=== PATIENT | female | born 1935 | race Caucasian/White ===

== ENCOUNTER 2020-08-05 11:22 | Emergency (ER) | payer MEDICARE ==
--- NOTE | 2020-08-05 13:19 | Event Note ---
ED Screening Note Date of service: 08/05/20 Time: 13:17 ED Screening Note: 85-year-old female patient presents to emergency department with reported complaints of right facial pain/swelling and right-sided chest pain status post mechanical fall 4 days ago. Patient was ambulating outside when she tripped and fell forward onto the concrete. Fall was witnessed by the patient's son. There was no loss of consciousness. Patient has developed bruising and swelling to the right side of her face since the fall. Patient is not anticoagulated. General: Awake, appropriately interactive, no acute distress. Neck: Supple. Full range of motion intact. Cardiovascular: Normal peripheral perfusion. Pulmonary: No respiratory distress. Right anterior chest wall tenderness. Skin: Right facial ecchymosis Neurological: No facial asymmetry. Speech is clear. Follows commands. Patient is alert and oriented. Musculoskeletal: Moves all four extremities spontaneously with normal range of motion. Psych: Cooperative. Appropriate mood and affect. Imaging studies ordered; case discussed with Dr. Escudero, attending emergency physician, who agrees with initial diagnostic work-up. I have greeted and performed a focused rapid initial assessment of this patient. A comprehensive ED assessment and evaluation of the patient, analysis of all test results, and completion of the medical decision-making process will be conducted by additional ED providers. This initial assessment/diagnostic orders/clinical plan/treatment(s) is/are subject to change based on patients health status, clinical progression and re-assessment. Further treatment and workup at subsequent clinical provider's discretion. Patient/guardian urged not to elope from the ED as their condition may be serious if not clinically assessed and managed.
[2020-08-05 14:39] LABS: Hematocrit 35.1 % (30.3-42.9); Hemoglobin 11.5 gm/dl (10.1-14.3); Mean Corpuscular HGB Conc 33 % (30-34); Mean Corpuscular Volume 88 fl (79-97); Platelet Count 311 K/mm3 (140-440); Red Cell Distribution Width 14.7 % (13.2-15.2)
[2020-08-05 14:52] LABS: Blood Urea Nitrogen 12 mg/dL (7-17); Calcium 9.3 mg/dL (8.4-10.2); Hemolysis Index 4
[2020-08-05 15:05] LABS: BUN/Creatinine Ratio 24
--- NOTE | 2020-08-05 17:28 | Cat Scan Report ---
CT head/brain wo con INDICATION: trauma. TECHNIQUE: All CT scans at this location are performed using CT dose reduction for ALARA by means of automated e xposure control. COMPARISON: None available. FINDINGS: There is no evidence of hemorrhage, hydrocephalus, brain edema, or mass effect/mass lesion. There is overall normal brain formation and brain volume for the patient's age. Ventricular and cisternal/sulc al size is normal for age. The included paranasal sinuses and mastoid air cells are clear. The orbits appear unremarkable. IMPRESSION: 1. No acute intracranial abnormality. Signer Name: Alfred Hackett MD Signed: 08/05/2020 5:23 PM Workstation Name: [id number]
--- NOTE | 2020-08-05 17:29 | Cat Scan Report ---
CT CERVICAL SPINE WITHOUT CONTRAST INDICATION: trauma. TECHNIQUE: Axial CT images of the spine were obtained. Sagittal and coronal reformatted images were produced. Al l CT scans at this location are performed using CT dose reduction for ALARA by means of automated exp osure control. COMPARISON: None available. FINDINGS: ACUTE FRACTURE(S) OR SUBLUXATION: None. SPINAL DEGENERATIVE CHANGES: There is mild generalized spondylosis and facet DJD without significant spinal canal or neural foraminal narrowing. PARASPINAL SOFT TISSUES: No soft tissue swelling or other acute abnormalities. ADDITIONAL FINDINGS: No significant additional findings. IMPRESSION: 1. No acute fracture or subluxation in the spine in neutral position. Signer Name: Alfred Hackett MD Signed: 08/05/2020 5:25 PM Workstation Name: [id number]
--- NOTE | 2020-08-05 17:32 | Cat Scan Report ---
CT CHEST WITH CONTRAST INDICATION / CLINICAL INFORMATION: Trauma. Chest pain after trauma. TECHNIQUE: Axial CT images were obtained through the chest after 100 mL Omnipaque [address] IV contrast. Al l CT scans at this location are performed using CT dose reduction for ALARA by means of automated exp osure control. COMPARISON: None available. FINDINGS: HEART: No significant abnormality. CORONARY ARTERY CALCIFICATION: Mild. THORACIC AORTA: No significant abnormality. MEDIASTINUM / TATI: No significant abnormality. PLEURA: No pleural effusion. No pneumothorax. LUNGS: Minimal bibasilar atelectasis. No acute airspace disease. ADDITIONAL FINDINGS: Mild diffuse thyroid enlargement with small subcentimeter nodule in the right lo be. UPPER ABDOMEN: No acute abnormality. Liver is enlarged and hypodense characteristic of fatty infiltra tion. SKELETAL SYSTEM: Possible nondisplaced fractures of the right lateral 3rd through 7th ribs. Otherwise , no acute skeletal abnormality. IMPRESSION: 1. Possible nondisplaced fractures of the right lateral 3rd through 7th ribs. 2. No soft tissue injury of the chest. 3. Hepatomegaly with hepatic steatosis. 4. Incidental thyroid nodule in the right lobe measuring less than 1 cm in a patient equal to or over age 35. Recommendation based on ACR guidelines: Unless patient has risk factors for thyroid cancer, no additional imaging is recommended Signer Name: Alex Galindo MD Signed: 08/05/2020 5:28 PM Workstation Name: [id number]
--- NOTE | 2020-08-05 17:32 | Cat Scan Report ---
CT MAXILLOFACIAL WITHOUT CONTRAST INDICATION: Facial pain after trauma. TECHNIQUE: All CT scans at this location are performed using CT dose reduction for ALARA by means of automated e xposure control. COMPARISON: None available. FINDINGS: FACIAL BONES: No fracture or other significant abnormality. PARANASAL SINUSES: No significant abnormality. ORBITS: No acute findings. Previous bilateral cataract surgery. VISUALIZED INTRACRANIAL STRUCTURES: No significant abnormality. ADDITIONAL FINDINGS: None. IMPRESSION: 1. No acute maxillofacial fracture or subluxation. Signer Name: Alfred Hackett MD Signed: 08/05/2020 5:27 PM Workstation Name: [id number]
--- NOTE | 2020-08-05 17:43 | Emergency Department Report ---
ED General Adult HPI - General Chief complaint: Fall Stated complaint: FALL Time Seen by Provider: 08/05/20 16:50 Source: patient, supplier quality Mode of arrival: Wheelchair Limitations: No Limitations - History of Present Illness Initial comments: The patient presents to the emergency department with her son secondary to a fall that occurred on Sunday. Patient is not [place]-speaking so her son translates for her. Son states on Sunday his mother was in the backyard and she tripped over something in the yard falling face first to the ground. They are concerned because she still has significant amount of pain and is has bruising to her chest and right side of her face. She also complains of right wrist pain, right knee pain, right shoulder pain. Patient denies loss of consciousness via her son through translation. Patient denies abdominal pain or shortness of breath. -: Sudden Location: back, upper extremity Radiation: non-radiation Severity scale (0 -10): 4 Quality: aching Consistency: constant Improves with: rest Worsens with: movement Associated Symptoms: denies other symptoms Treatments Prior to Arrival: none - Related Data Allergies Allergy/AdvReac Type Severity Reaction Status Date / Time No Known Allergies Allergy Unverified 08/05/20 12:16 ED Review of Systems ROS: Stated complaint: FALL Other details as noted in HPI Constitutional: denies: chills, fever Eyes: denies: eye pain, eye discharge, vision change ENT: denies: ear pain, throat pain Respiratory: denies: cough, shortness of breath, wheezing Cardiovascular: denies: chest pain, palpitations Endocrine: no symptoms reported Gastrointestinal: denies: abdominal pain, nausea, diarrhea Genitourinary: denies: urgency, dysuria, discharge Musculoskeletal: denies: back pain, joint swelling, arthralgia Skin: denies: rash, lesions Neurological: denies: headache, weakness, paresthesias Psychiatric: denies: anxiety, depression Hematological/Lymphatic: denies: easy bleeding, easy bruising ED Past Medical Hx - Past Medical History Hx Hypertension: Yes Hx Diabetes: Yes - Surgical History Past Surgical History?: No ED Physical Exam - General Limitations: No Limitations General appearance: alert, in no apparent distress - Head Head exam: Present: normocephalic - Eye Eye exam: Present: normal appearance, other (Right infraorbital swelling and bruising on exam; no hyphema on exam; tenderness to palpation along the periorbital ridge) - ENT ENT exam: Present: mucous membranes moist - Neck Neck exam: Present: other (Tenderness to palpation midline C-spine) - Respiratory Respiratory exam: Present: normal lung sounds bilaterally, chest wall tenderness (There is chest wall tenderness palpation of the right side with associated bruising). Absent: respiratory distress - Cardiovascular Cardiovascular Exam: Present: regular rate, normal rhythm. Absent: systolic murmur, diastolic murmur, rubs, gallop - GI/Abdominal GI/Abdominal exam: Present: soft, normal bowel sounds. Absent: distended, tenderness - Extremities Exam Extremities exam: Present: other (Patient has tenderness palpation along the ulnar aspect of the right wrist, patient has tenderness palpation along the deltoid of the right shoulder, patient is tenderness palpation to the right patella) - Back Exam Back exam: Present: normal inspection - Neurological Exam Neurological exam: Present: alert, oriented X3, CN II-XII intact. Absent: motor sensory deficit - Psychiatric Psychiatric exam: Present: normal affect, normal mood - Skin Skin exam: Present: warm, dry, intact, normal color. Absent: rash ED Course Vital Signs 08/05/20 08/05/20 08/05/20 12:19 18:05 18:34 Temperature 98.5 F Pulse Rate 91 H 54 L Respiratory 20 18 18 Rate Blood Pressure 119/69 126/68 [Right] O2 Sat by Pulse 97 96 Oximetry 08/05/20 20:00 Temperature Pulse Rate 88 Respiratory 18 Rate Blood Pressure 132/78 [Right] O2 Sat by Pulse 95 Oximetry ED Medical Decision Making - Lab Data Result diagrams: 08/05/20 14:13 08/05/20 14:13 Lab Results 08/05/20 08/05/20 Range/Units 14:13 14:13 WBC 5.1 (4.5-11.0) K/mm3 RBC 4.00 (3.65-5.03) M/mm3 Hgb 11.5 (10.1-14.3) gm/dl Hct 35.1 (30.3-42.9) % MCV 88 (79-97) fl MCH 29 (28-32) pg MCHC 33 (30-34) % RDW 14.7 (13.2-15.2) % Plt Count 311 (140-440) K/mm3 Sodium 135 L (137-145) mmol/L Potassium 4.5 (3.6-5.0) mmol/L Chloride 97.1 L (98-107) mmol/L Carbon Dioxide 19 L (22-30) mmol/L Anion Gap 23 mmol/L BUN 12 (7-17) mg/dL Creatinine 0.5 L (0.6-1.2) mg/dL Estimated GFR > 60 ml/min BUN/Creatinine Ratio 24 % Glucose 108 H (65-100) mg/dL Calcium 9.3 (8.4-10.2) mg/dL - Radiology Data Radiology results: report reviewed - Medical Decision Making Discussed imaging findings with the patient and her son and the need for admission Spoke to the on-call surgeon Dr. Galeana the patient was discussed in detail and it was felt that the patient would benefit from going to a trauma center Contacted [facility] spoke to Dr. Montgomery who accepted the patient as a level 2 transfer Critical Care Time: Yes Critical care time in (mins) excluding proc time.: 35 Critical care attestation.: If time is entered above; I have spent that time in minutes in the direct care of this critically ill patient, excluding procedure time. ED Disposition Clinical Impression: Multiple rib fractures, Fall, Trauma of chest Disposition: [id number]/TX-[id number] ANOTHER TYPE HLTHCARE Is pt being admited?: No Does the pt Need Aspirin: No Condition: Fair Referrals: PRIMARY CARE, [Primary Care Provider] - 3-5 Days
--- NOTE | 2020-08-05 18:28 | XRay Report ---
RIGHT KNEE 2 VIEW(S) INDICATION / CLINICAL INFORMATION: Right knee pain after a fall COMPARISON: None available. FINDINGS: BONES / JOINT(S): No acute fracture or subluxation. No significant arthritis. SOFT TISSUES: No significant abnormality. ADDITIONAL FINDINGS: None. Signer Name: Alex Galindo MD Signed: 08/05/2020 6:23 PM Workstation Name: [id number]
--- NOTE | 2020-08-05 18:29 | XRay Report ---
RIGHT SHOULDER 3 VIEW(S) INDICATION / CLINICAL INFORMATION: Right shoulder pain after a fall COMPARISON: None available. FINDINGS: BONES / JOINT(S): No acute fracture or subluxation. Mild acromioclavicular degenerative arthrosis. No displaced rib fractures noted. SOFT TISSUES: No significant abnormality. ADDITIONAL FINDINGS: None. Signer Name: Alex Galindo MD Signed: 08/05/2020 6:25 PM Workstation Name: [id number]
--- NOTE | 2020-08-05 18:29 | XRay Report ---
RIGHT WRIST 2 VIEW(S) INDICATION / CLINICAL INFORMATION: Right wrist pain after a fall COMPARISON: None available. FINDINGS: BONES / JOINT(S): No acute fracture or subluxation. No significant arthritis. SOFT TISSUES: No significant abnormality. ADDITIONAL FINDINGS: None. Signer Name: Alex Galindo MD Signed: 08/05/2020 6:25 PM Workstation Name: [id number]
--- NOTE | 2020-08-05 18:32 | XRay Report ---
Pelvis single view INDICATION: Pelvic pain following fall IMPRESSION: No fracture identified. Osteopenia. Signer Name: Adithya Jimenez MD Signed: 08/05/2020 6:27 PM Workstation Name: [email or web address]
[2020-08-05] MEDS ORDERED: MORPHINE 4 MG/1 ML INJ IV ONE (20:21)
[2020-08-05] MEDS ORDERED: ONDANSETRON 4 MG/2 ML INJ IV ONE (20:21)
[2020-08-06 00:06] VITALS: BP 133/76
--- NOTE | 2020-08-09 10:34 | Electrocardiograph Report ---
[facility] Test Date: 2020-08-05 Test Time: 12:43:06 Pat Name: SHARRON BECK Department: Room: Gender: F Detective: CAM : [id number] Requested By: SHAWNA SMITH Order Number: [id number] Reading MD: Carl Portillo Measurements Intervals [place] Rate: 84 P: 47 MT: 156 QRS: 47 QRSD: 81 T: 42 QT: 374 QTc: 441 Interpretive Statements Sinus rhythm No previous ECG available for comparison Electronically Signed On 08-09-2020 10:33:28 EDT by Carl Portillo
== END 2020-08-06 01:10 | disposition other institution (70) ==
LOC: ED 11:22
DX: S22.41XA Multiple fractures of ribs, right side, initial encounter for closed fracture (principal); R51.9 Headache, unspecified; I10 Essential (primary) hypertension; E11.9 Type 2 diabetes mellitus without complications; W01.0XXA Fall on same level from slipping, tripping and stumbling without subsequent striking against object, initial encounter; Y93.89 Activity, other specified; Y92.89 Other specified places as the place of occurrence of the external cause; Y99.8 Other external cause status
CPT/HCPCS: 36415; 70450; 70486; 71260; 72125; 72170; 73030; 73100; 73560; 80048; 85027; 93005; 96374; 96375; 99285; J2270; J2405; Q9967